=== PATIENT | male | born 1945 | race Two or more races ===

== ENCOUNTER 2019-06-28 05:26 | Day surgery (SDC) | payer OTHER ==
[~2019-06-28 05:26] MED LIST: HYZAAR 50-12.51 EACH PO; LIPITOR20 MG PO; METFORMIN HCL500 M3 PO; MONOPRIL PO
== END 2019-06-28 15:00 | disposition home or self-care (01) ==
LOC: CIR.AMB 05:26
DX: K40.90 Unilateral inguinal hernia, without obstruction or gangrene, not specified as recurrent (principal)